=== PATIENT | female | born 1945 | race Caucasian/White ===

== ENCOUNTER → 2016-11-10 | Outpatient (CLI) | payer OTHER ==
[~2016-11-10] MED LIST: ALPR0.254 PO; HYDR-2766 PO; LEVO25TA55 PO; LOSA1TAB2 PO; PANT20TA2 PO
--- NOTE | 2016-11-10 21:52 | KCIC ---
Diagnostic digital mammogram right breast: Reason for examination: Follow-up parenchymal density. Comparison is made to previous studies dated 03/11/2016 and 01/07/2015. The skin and nipple show no abnormalities. No abnormal axillary lymph nodes are seen. The breast parenchyma shows scattered fibroglandular density. (Breast density: Category B.) There has been a decrease in the size of the small parenchymal density seen in the 8:00 B position. There are no new dominant masses, suspicious calcifications or architectural distortions. Impression: No evidence of malignancy. Recommend routine screening. BI-RADS Category 2: Benign. "Our facility is accredited by the [employer]ammography [employer]." This patient's information has been entered into a reminder system for the patient to be notified with the results of her examination and a target date for the next mammogram. Electronically signed by: Ashley Corcoran MD (11/10/2016 9:49 PM)
== END | disposition home or self-care (01) ==
LOC: KCIC MAMMO 08:17
PROVIDERS: ATTEND Family Medicine
DX: R92.8 Other abnormal and inconclusive findings on diagnostic imaging of breast (principal)
CPT/HCPCS: G0206; 77065

== ENCOUNTER → 2016-12-30 | Day surgery (SDC) | payer OTHER ==
[~2016-12-30] MED LIST changes: +ATOR20TA58 PO; +HYDROmorphone 2 MG/ML VIAL IV PRN; +IV RINGERS,LACTATED 1000ML 1,000 ML IV SCH; +LEVO75TA5 PO; +LEVO88TA4 PO; +LIDOCAINE 1% 1 ML SYRINGE. ID PRN; +LIDOCAINE 2% PF Vial for OR 5 ML VIAL. ONE; +LOSA1TAB16 PO; +MONT10TA6 PO; +MORPHINE SULFATE 2 MG/ML DISP.SYRIN. IV PRN; +ONDANSETRON PF 4 MG/2 ML VIAL. IV PRN; +PANT40TA5 PO; +PROCHLORPERAZINE 10 MG/2 ML VIAL. IV PRN; +PROPOFOL 40 ML IV ONE; +TOPI25TA7 PO; +fentaNYL PF VIAL 100 MCG/2 ML VIAL IV PRN
[2016-12-30 10:30] VITALS: BP 139/69
--- NOTE | 2016-12-31 13:47 | PATHOLOGY ---
PATHOLOGY REPORT * * * * * * * * FINAL DIAGNOSIS: A. Small bowel biopsy: - No significant pathologic abnormalities. B. Gastric biopsy, antrum: - Chronic gastritis, mild. C. Esophageal biopsy, distal esophagus: - Segment of gastric mucosa showing mild superficial chronic inflammation. D. Colon biopsy, transverse colon polyp: - Tubular adenoma. E. Colon biopsies, descending colon polyp: - Consistent with hyperplastic polyp/prominent fold. F. Colorectal biopsies, rectal polyps: - Hyperplastic polyps showing focal mild chronic inflammation. COMMENT: Sections of the small bowel biopsy reveal segments of duodenal and small intestine mucosa. Where best oriented, the mucosal villi appear normal and show no sprue-like changes or significant inflammatory changes. Sections of the gastric antral biopsy show congestion and mild chronic inflammation. An immunoperoxidase stain for Helicobacter is obtained. No Helicobacter organisms are identified. Sections of the distal esophageal biopsy reveal a segment of gastric mucosa showing mild superficial chronic inflammation. There is no squamous esophageal mucosa. There is no evidence of Rice's change, dysplasia, or malignancy. Sections of the transverse colon polyp biopsy reveal a tubular adenoma showing no high grade dysplasia or evidence of malignancy. Sections of the descending colon polyp biopsy reveal segments of colonic mucosa consistent with hyperplastic polyp/prominent fold. Sections of the rectal polyps biopsies reveal hyperplastic polyps showing focal mild chronic inflammation. Special stain performed: Immunoperoxidase for Helicobacter on B1. (JPM:db; 12/31/2016 REPORT ELECTRONICALLY SIGNED BY: Frank Walker M.D. DATE/TIME: 12/31/2016 13:46 * * * * * * * * GROSS PATHOLOGY: A. Received in formalin labeled "Ning Corbin, biopsy small bowel," are three segments of stephens soft tissue measuring from 0.2 up to 0.3 cm in maximum dimension. The specimen is submitted entirely in cassette A1. B. Received in formalin labeled "biopsy gastric antrum," are two segments of stephens soft tissue measuring 0.1 and 0.4 cm in maximum dimension. The specimen is submitted entirely in cassette B1. C. Received in formalin labeled "biopsy distal esophagus," is a segment of stephens soft tissue measuring 0.3 cm in maximum dimension. The specimen is submitted entirely in cassette C1. D. Received in formalin labeled "biopsy transverse polyp," is a segment of stephens soft tissue measuring 0.3 cm in maximum dimension. The specimen is submitted entirely in cassette D1. E. Received in formalin labeled "biopsy descending colon polyp," is a segment of stephens soft tissue measuring 0.4 cm in maximum dimension. The specimen is submitted entirely in cassette E1. F. Received in formalin labeled "biopsy rectal polyps," are two segments of stephens soft tissue measuring 0.3 and 0.4 cm in maximum dimension. The specimen is submitted entirely in cassette F1. (JPM; 12/30/16) INITIAL CPT CODE(S): A; 78966 B; 52452, 37345 C; 99033 D; 28131 E; 26664 F; 68360 Professional services performed [place] [facility] [place] [address] Technical services performed by [facility] at [address] [place] [address], [address] [address]. SPECIMEN(S) RECEIVED: A.Small bowel biopsy B.Biopsy gastric antrum C.Biopsy distal esophagus D.Biopsy transverse colon polyp E.Biopsy descending colon polyp F.Biopsy rectal polyps CLINICAL HISTORY: GERD, screening PATIENT: NING CORBIN /AGE: 1205/09/1945 (Age: 71) PATIENT #: [id number] ALT CASE #: SPECIMEN COLLECTION DATE: 12/30/2016 SPECIMEN RECEIVED DATE: 12/30/2016 [facility] - [address] [place] [address] - PHONE: [phone] * * * END OF REPORT * * *
== END | disposition home or self-care (01) ==
LOC: ENDOS 07:49
PROVIDERS: ATTEND Internal Medicine Gastroenterology
DX: Z12.11 Encounter for screening for malignant neoplasm of colon (principal); D12.3 Benign neoplasm of transverse colon; D12.4 Benign neoplasm of descending colon; K64.0 First degree hemorrhoids; K62.1 Rectal polyp; K57.30 Diverticulosis of large intestine without perforation or abscess without bleeding; K92.2 Gastrointestinal hemorrhage, unspecified; K21.0 Gastro-esophageal reflux disease with esophagitis; E78.00 Pure hypercholesterolemia, unspecified; I10 Essential (primary) hypertension; E03.9 Hypothyroidism, unspecified; Z90.49 Acquired absence of other specified parts of digestive tract; Z90.710 Acquired absence of both cervix and uterus; Z88.7 Allergy status to serum and vaccine; Z88.8 Allergy status to other drugs, medicaments and biological substances
CPT/HCPCS: 43239; 45380; 88305; 88342; J2704; J2001

== ENCOUNTER → 2017-08-05 | Outpatient (CLI) | payer OTHER ==
[~2017-08-05] MED LIST changes: -ALPR0.254 PO; -ATOR20TA58 PO; +CONTRAST GIVEN MC; -HYDR-2766 PO; -HYDROmorphone 2 MG/ML VIAL IV PRN; -IV RINGERS,LACTATED 1000ML 1,000 ML IV SCH; -LEVO25TA55 PO; -LEVO75TA5 PO; -LEVO88TA4 PO; -LIDOCAINE 1% 1 ML SYRINGE. ID PRN; -LIDOCAINE 2% PF Vial for OR 5 ML VIAL. ONE; -LOSA1TAB16 PO; -LOSA1TAB2 PO; -MONT10TA6 PO; -MORPHINE SULFATE 2 MG/ML DISP.SYRIN. IV PRN; -ONDANSETRON PF 4 MG/2 ML VIAL. IV PRN; -PANT20TA2 PO; -PANT40TA5 PO; -PROCHLORPERAZINE 10 MG/2 ML VIAL. IV PRN; -PROPOFOL 40 ML IV ONE; -TOPI25TA7 PO; -fentaNYL PF VIAL 100 MCG/2 ML VIAL IV PRN
[2017-08-05] MEDS: IOHEXOL 240 MG/ML 50ML VIAL. PO (09:50)
[2017-08-05] MEDS: IOHEXOL 300 MG/ML 100ML VIAL. IV (10:13)
[2017-08-05 10:19] LABS: ISTAT CREATININE 0.7 mg/dL (0.6-1.1)
== END | disposition home or self-care (01) ==
LOC: KCIC CT 09:14
DX: K76.89 Other specified diseases of liver (principal); Z85.528 Personal history of other malignant neoplasm of kidney
CPT/HCPCS: 74170; 82565; Q9966; Q9967

== ENCOUNTER → 2017-12-01 | Outpatient (CLI) | payer OTHER | END | disposition home or self-care (01) | LOC: KCIC DEXA 08:52 | DX: Z13.820 Encounter for screening for osteoporosis (principal); E03.9 Hypothyroidism, unspecified; I10 Essential (primary) hypertension; E11.9 Type 2 diabetes mellitus without complications; K21.0 Gastro-esophageal reflux disease with esophagitis; R29.890 Loss of height; Z78.0 Asymptomatic menopausal state; Z85.528 Personal history of other malignant neoplasm of kidney | CPT/HCPCS: 76641; 77066; 77080; G0279 ==

== ENCOUNTER → 2018-04-10 | Outpatient (CLI) | payer OTHER ==
[2016-12-30 10:30] VITALS: BP 139/69
[~2018-04-10] MED LIST changes: +ALPR0.254 PO; +ATOR20TA58 PO; -CONTRAST GIVEN MC; +HYDR-2766 PO; +IOHEXOL 240 MG/ML 50ML VIAL. PO ONE; +IOHEXOL 300 MG/ML 100ML VIAL. IV ONE; +LEVO25TA55 PO; +LEVO75TA5 PO; +LEVO88TA4 PO; +LOSA1TAB19 PO; +LOSA1TAB2 PO; +MONT10TA6 PO; +PANT20TA2 PO; +PANT40TA5 PO; +TOPI25TA7 PO
--- NOTE | 2018-04-10 15:53 | KCIC ---
CT of the abdomen and pelvis with and without contrast 04/10/2018 INDICATION: Left lower quadrant pain. COMPARISON STUDY: CT of the abdomen and pelvis with and without contrast August 05, 2017 TECHNIQUE: Multidetector CT imaging of the abdomen and pelvis was performed both before and after the administration of IV contrast. FINDINGS: Lung bases demonstrate no acute abnormality. Scattered hepatic hypodensities are unchanged from prior exam consistent with small cysts. Prior cholecystectomy noted. Mild intrahepatic biliary dilatation is similar to comparison study likely reflecting physiologic change following removal of the gallbladder. Spleen is unremarkable. Adrenal glands are unchanged in appearance. Prior left partial nephrectomy noted. Small nodular opacity lung superior aspect of the remaining kidney has slightly decreased in size in the interim. This appears to be partially calcified and likely reflects post surgical change. The pancreas is unremarkable in appearance. There is no evidence of bowel obstruction. Descending and sigmoid colonic diverticulosis is noted. Evaluation of large bowel is limited due to lack of enteric contrast within the large bowel. Increased stool appears to be present particularly within the transverse colon. Correlate with evidence of constipation. The bladder appears to be grossly unremarkable. No significant free fluid or free air seen in the abdomen or pelvis. No evidence of acute osseous abnormality is identified. IMPRESSION: 1. No evidence of acute intra-abdominal abnormality is identified. 2. Postsurgical changes following left partial nephrectomy as described 3.Descending and sigmoid colonic diverticulosis, stable. Increased stool in the transverse colon is seen. Correlate with evidence of constipation. CT DOSING PQRS STATEMENT: One or more of the following individualized dose reduction techniques were utilized for this examination: 1. Automated exposure control 2. Adjustment of the mA and/or kV according to patient size 3. Use of iterative reconstruction technique Electronically signed by: Gary Martin MD (04/10/2018 3:50 PM) [id number]
== END | disposition home or self-care (01) ==
LOC: KCIC CT 12:16
PROVIDERS: ATTEND Nurse Practitioner Family
DX: K57.30 Diverticulosis of large intestine without perforation or abscess without bleeding (principal); I10 Essential (primary) hypertension; Z90.49 Acquired absence of other specified parts of digestive tract; Z85.528 Personal history of other malignant neoplasm of kidney
CPT/HCPCS: 74178; 82565; Q9966; Q9967

== ENCOUNTER → 2019-07-03 | Outpatient (CLI) | payer MEDICARE ==
[2016-12-30 10:30] VITALS: BP 139/69
[~2019-07-03] MED LIST changes: -HYDR-2766 PO; +HYDR-2769 PO; -IOHEXOL 240 MG/ML 50ML VIAL. PO ONE; -IOHEXOL 300 MG/ML 100ML VIAL. IV ONE; +MONT10TA49 PO; -MONT10TA6 PO; -PANT40TA5 PO; +PANT40TA77 PO
--- NOTE | 2019-07-03 17:48 | KCIC ---
Left rib radiographs History: Posterior chest wall pain increasing, previous history of fracture Comparison: May 04, 2016 Findings: 4 views of the left ribs are submitted. There is again granuloma of the mid to superior left hemithorax. There is no left pneumothorax, pleural fluid, infiltrate. The entirety of the right hemithorax was not included. There is been cholecystectomy. Heart size is similar. No displaced left rib fracture is identified by radiographs. There is mild contour deformity of the left posterior lateral sixth and seventh ribs. Impression: 1. No displaced left rib fracture is identified by radiographs, mild nonspecific contour deformity of left posterolateral sixth and seventh roots. Electronically signed by: Nile Cowan MD (07/03/2019 5:45 PM) [email or web address]
== END | disposition home or self-care (01) ==
LOC: KCIC 12:57
PROVIDERS: ATTEND Family Medicine
DX: M95.4 Acquired deformity of chest and rib (principal); J84.10 Pulmonary fibrosis, unspecified
CPT/HCPCS: 71100

== ENCOUNTER → 2019-07-26 | Outpatient (CLI) | payer MEDICARE ==
[2016-12-30 10:30] VITALS: BP 139/69
[~2019-07-26] MED LIST changes: +IOHEXOL 300 MG/ML 100ML VIAL. IV ONE
--- NOTE | 2019-07-26 16:54 | KCIC ---
EXAM: CT Chest with IV contrast INDICATION: Left-sided chest wall pain. Past history of rib fractures. TECHNIQUE: Multi-detector row CT images were acquired from the thoracic inlet through the upper abdomen with the use of IV contrast. Sagittal and coronal images were acquired from the transaxial data. All CT scans performed at this facility utilize dose optimization techniques as appropriate to the exam, including the following: Automated exposure control and adjustment of the mA and/or KV according to patient size (this includes techniques or standardized protocols for targeted exams where dose is indication/reason for exam). IV CONTRAST: Administered COMPARISON: 05/04/2016 2 view chest x-ray, left rib series of 07/03/2019. FINDINGS: CARDIOVASCULAR: Unremarkable MEDIASTINUM & JULIETH: No adenopathy or masses. Small amount of gas is present in the innominate, and right subclavian and jugular veins.. LUNGS: Redemonstrated is a 9 mm densely calcified nodule in the peripheral left upper lobe abutting the pleura, present in the setting of additional calcified nodules in the left upper lobe. Lungs otherwise are clear. PLEURAL SPACE: No pleural effusions or pneumothorax. OSSEOUS & SOFT TISSUE: Unremarkable ABDOMEN: Included abdomen shows a 2.3 cm lobulated hypodense lesion in hepatic segment 6 that is incompletely characterized but favored to represent a hemangioma given apparent peripheral nodular enhancement at the inferior most portion. Postcholecystectomy surgical changes are also present. IMPRESSION: Evidence of previous granulomatous disease in the left upper lobe. No fracture or aggressive osseous lesions noted and otherwise no findings to explain left-sided chest wall pain. Electronically signed by: Ursula Verma MD (07/26/2019 4:51 PM) [id number]
== END | disposition home or self-care (01) ==
LOC: KCIC CT 12:39
PROVIDERS: ATTEND Family Medicine
DX: R91.1 Solitary pulmonary nodule (principal); J84.10 Pulmonary fibrosis, unspecified; K76.89 Other specified diseases of liver; Z90.49 Acquired absence of other specified parts of digestive tract
CPT/HCPCS: 71260; 82565; Q9967

== ENCOUNTER → 2021-08-04 | Outpatient (CLI) | payer MEDICARE ==
[2016-12-30 10:30] VITALS: BP 139/69
[~2021-08-04] MED LIST changes: -IOHEXOL 300 MG/ML 100ML VIAL. IV ONE
--- NOTE | 2021-08-04 15:07 | KCIC ---
Bilateral digital screening mammograms with 3-D tomosynthesis: Reason for examination: Routine screening. 72 pound weight loss since previous examination. Comparison is made to previous studies dated back to 01/07/2015. Bilateral mammograms in CC and oblique projections were obtained with 2-D imaging and 3-D tomosynthes is imaging on a Siemens Inspiration unit and reviewed on the workstation. Interpretation was made wit h the benefit of CAD. The skin and nipples show no abnormalities. No abnormal axillary lymph nodes are seen. The breast par enchyma shows scattered fatty and fibroglandular density. (Breast density: Category B.) There are no dominant masses, suspicious calcifications or architectural distortion. Impression: No evidence of malignancy. Recommend routine screening. BI-RAD Category 1: Negative. "Our facility is accredited by the [employer]ammography [employer]." This patient's information has been entered into a reminder system for the patient to be notified wit h the results of her examination and a target date for the next mammogram. Electronically signed by: Ashley Corcoran MD (08/04/2021 3:05 PM) [id number]
== END ==
LOC: KCIC MAMMO 13:36
PROVIDERS: ATTEND Family Medicine
DX: Z12.31 Encounter for screening mammogram for malignant neoplasm of breast (principal)
CPT/HCPCS: 77063; 77067